=== PATIENT | male | born 1995 | race Caucasian/White ===

== ENCOUNTER 2018-01-07 09:02 | Emergency (ER) | payer BC, MEDICAID, OTHER ==
[~2018-01-07] VITALS: Ht 172.7 cm; Wt 79.5 kg
[2018-01-07 09:08] VITALS: BP 130/87
[2018-01-07] MEDS ORDERED: ibuprofen tablet 400 MG TABLET PO ONE (09:35)
== END 2018-01-07 15:03 | disposition home or self-care (01) ==
LOC: ER 09:03
DX: S46.912A Strain of unspecified muscle, fascia and tendon at shoulder and upper arm level, left arm, initial encounter (principal); F12.90 Cannabis use, unspecified, uncomplicated; X58.XXXA Exposure to other specified factors, initial encounter; Y93.72 Activity, wrestling; Y92.009 Unspecified place in unspecified non-institutional (private) residence as the place of occurrence of the external cause; Y99.8 Other external cause status
CPT/HCPCS: 73030; 99284; L3650